=== PATIENT | female | born 1975 | race Caucasian/White ===

== ENCOUNTER 2019-07-20 13:00 | Emergency (ER) | payer OTHER ==
[~2019-07-20] VITALS: Ht 193 cm; Wt 100.0 kg
[2019-07-20 13:19] VITALS: BP 133/75; TEMP 97.5
[2019-07-20] MEDS ORDERED: LITHOBID 3300 MG/TAB PO (14:01)
[2019-07-20] MEDS ORDERED: LAMICTAL200 MG PO (14:01)
[2019-07-20] MEDS ORDERED: LEXAPRO20 MG PO (14:02)
[2019-07-20] MEDS ORDERED: JUNEL 1.5 MG-31 EACH PO (14:03)
[2019-07-20] MEDS ORDERED: ZOFRAN ODT4 MG PO (16:11)
[2019-07-20] MEDS ORDERED: NORCO 325 MG-51 TAB PO (16:11)
[2019-07-20] MEDS ORDERED: FLEXERIL 1010 MG/TAB PO (16:11)
[2019-07-20 16:17] VITALS: PULSE 70
== END 2019-07-20 16:17 | disposition home or self-care (01) ==
LOC: COL.ER 13:00
DX: S06.0X0A Concussion without loss of consciousness, initial encounter (principal); S16.1XXA Strain of muscle, fascia and tendon at neck level, initial encounter; F31.9 Bipolar disorder, unspecified; F41.9 Anxiety disorder, unspecified; F98.8 Other specified behavioral and emotional disorders with onset usually occurring in childhood and adolescence; R40.2412 Glasgow coma scale score 13-15, at arrival to emergency department; W00.0XXA Fall on same level due to ice and snow, initial encounter; W22.8XXA Striking against or struck by other objects, initial encounter; Y92.009 Unspecified place in unspecified non-institutional (private) residence as the place of occurrence of the external cause
CPT/HCPCS: J1885